=== PATIENT | female | born 1950 | race Caucasian/White ===

== ENCOUNTER → 2017-02-06 | Day surgery (SDC) | payer MEDICARE, BC | LOC: MSO 07:26 | DX: Z12.11 Encounter for screening for malignant neoplasm of colon (principal); I10 Essential (primary) hypertension; G43.909 Migraine, unspecified, not intractable, without status migrainosus | CPT/HCPCS: 00810; J7120 ==

== ENCOUNTER → 2023-05-10 | Outpatient (CLI) | payer MEDICARE, BC | LOC: RAD 15:41 | DX: M19.031 Primary osteoarthritis, right wrist (principal) ==